=== PATIENT | male | born 1990 | race African-American/Black ===

== ENCOUNTER 2016-12-10 15:07 | Emergency (ER) | payer SELFPAY ==
[2016-12-10] MEDS ORDERED: methylPREDNISolone Sod Succ/PF 125 MG/2 ML VIAL ONE (15:13)
[2016-12-10] MEDS ORDERED: hydrOXYzine 25 MG TAB ONE (15:13)
== END 2016-12-10 16:19 | disposition home or self-care (01) ==
LOC: BURERS 15:07
DX: T63.461A Toxic effect of venom of wasps, accidental (unintentional), initial encounter (principal); F31.9 Bipolar disorder, unspecified
CPT/HCPCS: 96372; J2930

== ENCOUNTER 2017-09-01 12:09 | Emergency (ER) | payer BC | END 2017-09-01 12:29 | disposition home or self-care (01) | LOC: BURERS 12:09 | DX: J06.9 Acute upper respiratory infection, unspecified (principal); F31.9 Bipolar disorder, unspecified; F90.9 Attention-deficit hyperactivity disorder, unspecified type | CPT/HCPCS: 99283 ==